=== PATIENT | male | born 1960 | race African-American/Black ===

== ENCOUNTER 2018-10-18 15:33 | Emergency (ER) | payer OTHER ==
[~2018-10-18] VITALS: Ht 177.8 cm; Wt 82.6 kg
[2018-10-18 15:38] VITALS: BP 162/98; PULSE 56; RESP 16; Ht 177.8 cm; Wt 82.6 kg
[2018-10-18] MEDS ORDERED: LISI10TA2 PO ×3 (16:35→16:36)
[2018-10-18] MEDS ORDERED: RIVA20TA5 PO (16:37)
[2018-10-18] MEDS ORDERED: FURO-109 PO (16:37)
--- NOTE | 2018-10-18 16:49 | ERD ---
ER Documentation Chief Complaint Chief Complaint refill of multiple CHF medications, out for 1 week HPI Patient is a 58-year-old male with past medical history of CHF, hypertension, presents the ER requesting medication refill of lisinopril, Lasix and Xarelto. Patient states he ran out of his medications 1 week ago. Patient states he was seeing a doctor at [place] however due to insurance changes he does not have a primary care physician at this time. Patient denies any chest pain or shortness of breath. Patient denies any leg swelling. Patient has no other concerns or complaints at this time. ROS All systems reviewed and are negative except as per history of present illness. Medications Home Meds Active Scripts Rivaroxaban* (Xarelto*) 20 Mg Tablet, 20 MG PO WITH DINNER, #30 TAB Prov:CHRISTINE LASSITER PA-C 10/18/18 Furosemide* (Lasix*) 40 Mg Tablet, 40 MG PO DAILY, #30 TAB Prov:CHRISTINE LASSITER PA-C 10/18/18 Lisinopril* (Lisinopril*) 10 Mg Tablet, 10 MG PO BID, #60 TAB Prov:CHRISTINE LASSITER PA-C 10/18/18 Discontinued Scripts Lisinopril* (Lisinopril*) 10 Mg Tablet, 10 MG PO BID, #30 TAB Prov:CHRISTINE LASSITER PA-C 10/18/18 Allergies Allergies: Coded Allergies: No Known Allergy (Unverified , 10/18/18) PMhx/Soc Hx Cardiac Disorders: Yes (CHF, HTN) FmHx Family History: No diabetes Physical Exam Vitals Vital Signs Date Temp Pulse Resp B/P (MAP) Pulse Ox O2 O2 Flow FiO2 Time Delivery Rate 10/18/18 98.2 56 16 162/98 97 15:38 (119) Physical Exam GENERAL: Well-developed, well-nourished male. Appears in no acute distress. Speaking in full sentences HEAD: Normocephalic, atraumatic. EYES: Pupils are equally reactive bilaterally. EOMs grossly intact. No conjunctival erythema. ENT: Moist mucous membranes. No uvula deviation. No kissing tonsils. NECK: Supple. No meningismus. Normal range of motion of the neck. LUNG: Clear to auscultation bilaterally. No rhonchi, wheezing, rales or coarse breath sounds. HEART: Regular rate and rhythm. No murmurs, rubs or gallops. EXTREMITIES: Equal pulses bilaterally. No peripheral clubbing, cyanosis or edema. No unilateral leg swelling. No pedal swelling noted bilaterally. NEUROLOGIC: Alert and oriented. Moving all four extremities without any d ifficulty. Normal speech. Steady gait. SKIN: Normal color. Warm and dry. No rashes or lesions. Procedures/MDM MEDICAL DECISION MAKING: Patient is a 58-year-old male, past medical history of hypertension, CHF, presents the ER for medication refill.. Vital signs were reviewed. Patient is afebrile. Patient was not hypoxic. Patient was hemodynamically stable. Patient denied any chest pain, shortness of breath, leg swelling. Patient will be given medication refill for lisinopril, Lasix and Xarelto per the bottles that patient has brought in with him. Patient given list of primary care providers within the local area. Patient advised to follow-up with primary care provider for any additional refills. Low suspicion for acute CHF exacerbation. Patient was nontoxic, [id number] prior to discharge. PRESCRIPTION: Tegretol, lisinopril, Lasix DISCHARGE: At this time, patient is stable for discharge and outpatient management. I have instructed the patient to follow-up with his/her primary care physician in 1-2 days. I have discussed with the patient the possibility of needing to see a specialist for further workup and imaging studies if symptoms persist. I have instructed the patient to promptly return to the ER for any new or worsening symptoms including increased pain, fever, nausea, vomiting, weakness or LOC. The patient and/or family expressed understanding of and agreement with this plan. All questions were answered. Home care instructions were provided. Patients blood pressure was elevated (>120/80) but appears stable without evidence of hypertensive emergency, hypertensive urgency or end-organ failure. I had discussion with the patient about the risks of hypertension. I have advised the patient to follow up with his/her primary care physician for outpatient monitoring and treatment for hypertension in 2-3 days. I have instructed the patient to return to the ER for any new or worsening symptoms including chest pain, shortness of breath, headache, blurred vision, confusion, nausea, vomiting or LOC. Disclaimer: Inadvertent spelling and grammatical errors are likely due to EHR/dictation software use and do not reflect on the overall quality of patient care. Also, please note that the electronic time recorded on this note does not necessarily reflect the actual time of the patient encounter. Departure Diagnosis: Primary Impression: Encounter for medication refill Additional Impression: Hypertension Hypertension type: unspecified Qualified Codes: I10 - Essential (primary) hypertension Condition: Fair Patient Instructions: High Blood Pressure (Hypertension) Referrals: [facility] YOU HAVE RECEIVED A MEDICAL SCREENING EXAM AND THE RESULTS INDICATE THAT YOU DO NOT HAVE A CONDITION THAT REQUIRES URGENT TREATMENT IN THE EMERGENCY DEPARTMENT. FURTHER EVALUATION AND TREATMENT OF YOUR CONDITION CAN WAIT UNTIL YOU ARE SEEN IN YOUR DOCTORS OFFICE WITHIN THE NEXT 1-2 DAYS. IT IS YOUR RESPONSIBILITY TO MAKE AN APPOINTMENT FOR FOLOW-UP CARE. IF YOU HAVE A PRIMARY DOCTOR --you should call your primary doctor and schedule an appointment IF YOU DO NOT HAVE A PRIMARY DOCTOR YOU CAN CALL OUR PHYSICIAN REFERRAL HOTLINE AT IF YOU CAN NOT AFFORD TO SEE A PHYSICIAN YOU CAN CHOSE FROM THE FOLLOWING [facility] [address] [facility]. [facility] [address] [facility]. [facility] [address] [facility] [address] [facility] [address] [facility]. [facility] [address] [facility]. [facility] YOU HAVE RECEIVED A MEDICAL SCREENING EXAM AND THE RESULTS INDICATE THAT YOU DO NOT HAVE A CONDITION THAT REQUIRES URGENT TREATMENT IN THE EMERGENCY DEPARTMENT. FURTHER EVALUATION AND TREATMENT OF YOUR CONDITION CAN WAIT UNTIL YOU ARE SEEN IN YOUR DOCTORS OFFICE WITHIN THE NEXT 1-2 DAYS. IT IS YOUR RESPONSIBILITY TO MAKE AN APPOINTMENT FOR FOLOW-UP CARE. IF YOU HAVE A PRIMARY DOCTOR --you should call your primary doctor and schedule and appointment IF YOU DO NOT HAVE A PRIMARY DOCTOR YOU CAN CALL OUR PHYSICIAN REFERRAL HOTLINE AT . IF YOU CAN NOT AFFORD TO SEE A PHYSICIAN YOU CAN CHOSE FROM THE FOLLOWING [facility] INSTITUTIONS: [facility] [address] [place] [address] [facility] [address] [place] [address] [facility] [address] [place] [address] [facility] URGENT CARE/SPECIALTIES Additional Instructions: Call your primary care doctor TOMORROW for an appointment during the next 1-2 days.See the doctor sooner or return here if your condition worsens before your appointment time. CHRISTINE LASSITER PA-C Oct 18, 2018 16:49
== END 2018-10-18 16:45 | disposition home or self-care (01) ==
LOC: FTE 15:33
DX: I11.0 Hypertensive heart disease with heart failure (principal); I50.9 Heart failure, unspecified
CPT/HCPCS: 99281

== ENCOUNTER 2018-12-26 18:06 | Emergency (ER) | payer OTHER ==
[~2018-12-26] VITALS: Ht 177.8 cm; Wt 86.5 kg
[~2018-12-26 18:06] MED LIST: BISO5TAB21 PO; FOLI-49 PO; FURO-109 PO; LISI10TA2 PO; RIVA20TA5 PO; SPIR25TA PO; TAMS-14 PO
[2018-12-26 18:09] VITALS: Ht 177.8 cm; Wt 86.5 kg
[2018-12-26] MEDS ORDERED: NICARDipine HCL 30 MG CAPSULE PO ONE (22:00)
[2018-12-26 22:25] VITALS: BP 183/122; PULSE 52; RESP 16
== END 2018-12-26 22:53 | disposition home or self-care (01) ==
LOC: E/R 18:06
DX: I11.0 Hypertensive heart disease with heart failure (principal); R53.1 Weakness; I50.9 Heart failure, unspecified; Z79.02 Long term (current) use of antithrombotics/antiplatelets; Z76.0 Encounter for issue of repeat prescription
CPT/HCPCS: Z7502; Z7610; 99283